=== PATIENT | male | born 1970 | race Caucasian/White ===

== ENCOUNTER 2020-11-27 00:17 | Emergency (ER) | payer MEDICARE, SELFPAY ==
[2020-11-27 01:00] VITALS: BP 162/72; PULSE 86; RESP 18; TEMP 36.9; O2SAT 97; BMI 37.5
--- NOTE | 2020-11-27 01:46 | HMH.EDSKAF ---
ED Disposition Clinical Impression: Cellulitis and abscess of lower extremity Disposition: Home, Self-Care Condition on Discharge: Good Instructions: DI for Cellulitis -- Adult Additional Instructions: keep clean daily and use meds Prescriptions: Sulfamethoxazole/Trimethoprim [Bactrim DS tablet] 1 each PO BID #14 tab Transmission Status: P[facility] to [id number] Cefdinir [Omnicef 300mg Capsule] 300 mg PO BID #20 cap Transmission Status: [facility]ending [id number] Referrals: Luke Ferguson [Primary Care Provider] - - Critical Care Critical Care Time: No Attestation: On 11/27/20, the high probability of a clinically significant, sudden or life threatening deterioration of the following system(s) required my full and direct attention, intervention and personal management. The time I documented below is in addition to time spent performing reported procedures but includes the following listed in this critical care notation. Medical Decision Making - Medical Records Medical records reviewed: Yes: I reviewed the patient's medical records. - Jewel Inquiry Pt receiving controlled substance: No Vital Signs: 11/27/20 01:00 Temperature 98.5 F Temperature Source Oral Pulse Rate [Right] 86 Respiratory Rate 18 Blood Pressure [Right Arm] 162/72 H Blood Pressure Mean [Right Arm] 102 Blood Pressure Source [Right Arm] Automatic Cuff Blood Pressure Position [Right Arm] Sitting 02 Sat by Pulse Oximetry 97 Oxygen Delivery Method Room Air - Lab Data Lab results reviewed: Yes: I reviewed the patient's lab results. Skin/Abscess/FB HPI - General Chief complaint: Skin/Abscess/Foreign Body Stated complaint: Rash on left leg Time Seen by Provider: 11/27/20 01:30 Mode of Arrival: Ambulatory Source of Information: Patient, Medical Record Limitations: No Limitations Description of Symptoms (Recalled from ER Triage Doc. by RN): Pt has chronic redness to left lower ext. has not seen his PCP for this and wants it looked at tonight. - History of Present Illness HPI narrative: ongoing reddness and skin swelling lt lower leg - no other lesions MD complaint: rash Onset (ago): week(s) Tetanus up to date: unsure Location: LLE Severity: moderate Associated symptoms: denies other symptoms Treatments prior to arrival: none - Related Data Previous Rx's Medication Instructions Recorded Benzonatate [Tessalon Perle 100mg 100 mg PO TID #30 cap 07/05/19 Cap] Minocycline HCl [Minocycline HCl 100 mg PO BID #20 tab 07/05/19 100mg Tab*] predniSONE [Prednisone 20mg 20 mg PO BID #10 tab 07/05/19 Tab] Cefdinir [Omnicef 300mg Capsule] 300 mg PO BID #20 cap 11/27/20 Sulfamethoxazole/Trimethoprim 1 each PO BID #14 tab 11/27/20 [Bactrim DS tablet] Allergies Allergy/AdvReac Type Severity Reaction Status Date / Time No Known Allergies Allergy Verified 12/18/18 21:24 [facility] History - Hepatitis A Screen Drug use history?: No High risk sexual behaviors?: No History of sexually transmitted infection?: No Currently employed?: No Childcare worker?: No Do you have indoor plumbing?: Yes Do you have electricity?: Yes Attestation statement:: This patient has been screened for Hepatitis A risk factors. I have reviewed the patient's past medical history: Yes Medical History: Denies:: Diabetes Mellitus Type 1, Diabetes Mellitus Type 2 - Social History Smoking Status: Never smoker Alcohol Intake: never Occupational Status: unemployed ROS Obtained: Yes All systems reviewed & no additional complaints - Constitutional Constitutional: Denies fever(s) - Eyes Eyes: Denies change in vision - ENT Ears, Nose, Mouth, and Throat: Denies sore throat - Cardiovascular Cardiovascular: Denies chest pain - Respiratory Respiratory: Denies shortness of breath - Gastrointestinal Gastrointestingal: Denies: abdominal pain - Genitourinary Male Genitourinary: Denies hematuria - Musculoskeleta
[2020-11-27 02:07] VITALS: BP 154/86; PULSE 82; RESP 16; TEMP 36.9; O2SAT 98
== END 2020-11-27 02:08 | disposition home or self-care (01) ==
PROVIDERS: Emergency Provider Emergency Medicine; PCP Family Medicine
DX: L03.116 Cellulitis of left lower limb (principal)
CPT/HCPCS: 99281

== ENCOUNTER 2021-03-12 14:23 | Emergency (ER) | payer MEDICARE, SELFPAY ==
[2021-03-12 14:35] VITALS: BP 141/91; PULSE 94; RESP 19; TEMP 37; O2SAT 97; BMI 43.9
--- NOTE | 2021-03-12 14:44 | HMH.EDUTC ---
[facility] – [place] Disposition Clinical Impression: Abscess Disposition: Home, Self-Care Condition on Discharge: Good Instructions: Boil, DI for Skin Abscess Additional Instructions: keep area clean and dry do not pick at area if worsen return or be seen in ed take antibiotics as ordered follow up with pcp tomorrow Prescriptions: cephALEXin [Cephalexin 500mg Tab] 500 mg PO BID 10 Days #20 tab Transmission Status: [id number] clindamycin HCL [Clindamycin HCl] 300 mg PO TID 7 Days #21 cap Transmission Status: [id number] Referrals: Provider,Referral, [Primary Care Provider] - Time of Disposition: 14:50 Medical Decision Making - Jewel Inquiry Pt receiving controlled substance: No [facility] [place] HPI - General Chief complaint: [facility]gent [facility] Stated complaint: swollen jaw left side Time Seen by Provider: 03/12/21 14:47 Source of Information: Patient Limitations: No Limitations - History of Present Illness Provider Complaint: 50 yr old male presents for left face swelling. pt states he has a pimple above his lip and the swelling has increased. - Related Data Previous Rx's Medication Instructions Recorded Benzonatate [Tessalon Perle 100mg 100 mg PO TID #30 cap 07/05/19 Cap] Minocycline HCl [Minocycline HCl 100 mg PO BID #20 tab 07/05/19 100mg Tab*] predniSONE [Prednisone 20mg 20 mg PO BID #10 tab 07/05/19 Tab] Cefdinir [Omnicef 300mg Capsule] 300 mg PO BID #20 cap 11/27/20 Sulfamethoxazole/Trimethoprim 1 each PO BID #14 tab 11/27/20 [Bactrim DS tablet] cephALEXin [Cephalexin 500mg Tab] 500 mg PO BID 10 Days #20 tab 03/12/21 clindamycin HCL [Clindamycin HCl] 300 mg PO TID 7 Days #21 cap 03/12/21 Allergies Allergy/AdvReac Type Severity Reaction Status Date / Time No Known Allergies Allergy Verified 12/18/18 21:24 [facility] History - Hepatitis A Screen Attestation statement:: This patient has been screened for Hepatitis A risk factors. I have reviewed the patient's past medical history: Yes Medical History: Denies:: Diabetes Mellitus Type 1, Diabetes Mellitus Type 2 - Social History Smoking Status: Never smoker Alcohol Intake: never Occupational Status: unemployed ROS Obtained: Yes Systems reviewed as appropriate & no additional complaints - Constitutional Constitutional: Reports system reviewed and no additional complaints, except as docu, Denies body ache, Denies fever(s) - Eyes Eyes: Reports system reviewed and no additional complaints, except as docu, Denies blurry vision - ENT Ears, Nose, Mouth, and Throat: Reports system reviewed and no additional complaints, except as docu, Reports as per HPI, Denies sore throat - Cardiovascular Cardiovascular: Reports system reviewed and no additional complaints, except as docu, Denies chest pain - Respiratory Respiratory: Reports system reviewed and no additional complaints, except as docu, Denies change in phlegm color - Gastrointestinal Gastrointestingal: Reports: system reviewed and no additional complaints, except as docu. Denies: nausea, vomiting - Genitourinary Male Genitourinary: Reports system reviewed and no additional complaints, except as docu, Denies urinary frequency - Musculoskeletal Musculoskeletal: Reports system reviewed and no additional complaints, except as docu, Denies joint pain - Integumentary/Breasts Skin/Breast: Reports system reviewed and no additional complaints, except as docu, Reports as per HPI, Reports boil - Neurologic Neurologic: Reports system reviewed and no additional complaints, except as docu, Denies dizziness - Endocrine Endocrine: Reports system reviewed and no additional complaints, except as docu, Denies fatigue - Hematologic/Lymphatic Henatologic/Lymphatic: Reports system reviewed and no additional complaints, except as docu, Denies lymphadenopathy - Allergic/Immunologic Allergic/Immunologic: Reports system reviewed and no additional complaints
[2021-03-12 14:52] VITALS: BP 141/91; PULSE 94; RESP 19; TEMP 37; O2SAT 97
== END 2021-03-12 14:55 | disposition home or self-care (01) ==
PROVIDERS: Emergency Provider Nurse Practitioner Family
DX: L02.01 Cutaneous abscess of face (principal)
CPT/HCPCS: G0463; 99202

== ENCOUNTER 2021-09-05 18:32 | Emergency (ER) | payer MEDICARE, SELFPAY ==
[2021-09-05 19:55] VITALS: BP 168/94; PULSE 91; RESP 19; TEMP 37.7; O2SAT 96; BMI 40.6
[2021-09-05 20:10] LABS: Apearance,Urine Clear (Clear); Color,Urine Yellow (Yellow); Specific Gravity, Urine >= 1.030 (1.005-1.030)
[2021-09-05 20:11] LABS: Glucose,Urine (UA) >=1000 (Negative); Ketones,Urine 15 (Negative); Protein,Urine 3+ (Negative)
[2021-09-05 20:12] LABS: Bilirubin,Urine Negative (Negative); Blood, Urine 3+ (Negative); UTC Leukocyte Esterase,Urine Negative (Negative); UTC Nitrate,Urine Negative (Negative); Urobilinogen,Urine 0.2 EU/dl (0.2)
[2021-09-05 20:20] LABS: POC Glucose,Bedside 288 (70-110)
--- NOTE | 2021-09-05 20:20 | HMH.EDUTC ---
[facility] [place] Condition on Discharge: Good Time of Disposition: 20:29 <Yael Bishop - Last Filed: 09/05/21 20:20> Condition on Discharge: Fair <Bishnu Merchant - Last Filed: 09/05/21 22:59> Clinical Impression: Elevated glucose level, Mesenteric adenitis Disposition: Home, Self-Care Instructions: DI for Acute Abdominal Pain, Type 2 Diabetes Additional Instructions: Please avoid sugars and other carbohydrates such as bread, pasta, rice, potatoes. Follow-up with your primary care physician in the next 2 days to discuss the possibility of you having new onset of diabetes. Your sugar today was elevated. May take [id number] ibuprofen and Tylenol for your discomfort. I strongly recommend that you stick to a clear liquid diet for the next day or 2. You may then advance your diet slowly. Important that you go see your doctor even if you feel well. Work-up in the emergency department today is consistent with a condition called mesenteric adenitis. This is usually not a serious disease and will resolve on its own. Please return to the emergency department if you feel worse in any way. Prescriptions: Ciprofloxacin HCl [Cipro 500mg Tab] 500 mg PO BID #20 tab Transmission Status: Pending to [facility]/pharmacy #[id number] metroNIDAZOLE [metroNIDAZOLE 500mg Tablet] 500 mg PO BID #20 tab Transmission Status: Pending to [facility]/pharmacy #[id number] Ondansetron [Ondansetron Odt 8mg Tab] 8 mg PO QID 4 Days #16 tab Transmission Status: Pending to [facility]/pharmacy #[id number] Referrals: Luke Ferguson [Primary Care Provider] - Medical Decision Making - Jewel Inquiry Pt receiving controlled substance: No Jewel was queried for this patient: No - Lab Data Lab results reviewed: Yes: I reviewed the patient's lab results. <Yael Bishop - Last Filed: 09/05/21 20:20> - Medical Records Medical records reviewed: Yes: I reviewed the patient's medical records. - Jewel Inquiry Pt receiving controlled substance: No - Lab Data Lab results reviewed: Yes: I reviewed the patient's lab results. Result diagrams: 09/05/21 20:30 09/05/21 20:30 <Bishnu Merchant - Last Filed: 09/05/21 22:59> Vital Signs: 09/05/21 19:55 09/05/21 20:32 09/05/21 21:46 Temperature 99.8 F H 98.9 F 99.6 F Temperature Source Oral Oral Pulse Rate [Right Brachial] 91 H 97 H Respiratory Rate 19 20 Blood Pressure [Right Arm] 168/94 H 171/92 H Blood Pressure Mean [Right Arm] 118 118 Blood Pressure Source [Right Arm] Automatic Cuff Blood Pressure Position [Right Arm] Sitting 02 Sat by Pulse Oximetry 96 97 Oxygen Delivery Method Room Air - Lab Data Lab Results 09/05/21 19:53: Urine Color Yellow, Urine Appearance Clear, Urine pH 6.0, Ur Specific [place] >= 1.030, Urine Protein 3+, Urine Glucose (UA) >=1000, Urine Ketones 15, Urine Blood 3+, Urine Nitrate Negative, Urine Bilirubin Negative, Urine Urobilinogen 0.2, Ur Leukocyte Esterase Negative 09/05/21 20:00: Urine Color Yellow, Urine Appearance Cloudy, Urine pH 6.0, Ur Specific [place] >= 1.030, Urine Protein 1+, Urine Glucose (UA) 3+, Urine Ketones 1+, Urine Blood 3+, Urine Nitrate Negative, Urine Bilirubin Negative, Urine Urobilinogen 0.2, Ur Leukocyte Esterase Negative, Urine RBC 5-10, Urine WBC 10-20, Ur Squamous Epith Cells None, Urine Bacteria None 09/05/21 20:12: POC Glucose 288 H 09/05/21 20:30: WBC 21.2 H*, RBC 5.57, Hgb 16.5, Hct 51.0, MCV 91.6, MCH 29.7, MCHC 32.4, RDW 12.7, Plt Count 214, MPV 7.8, Neut % (Auto) 85.7 H, Lymph % (Auto) 6.1 L, [place] % (Auto) 5.7, Eos % (Auto) 2.1, Baso % (Auto) 0.3, Neut # (Auto) 18.2 H, Lymph # (Auto) 1.3, [place] # (Auto) 1.2 H, Eos # (Auto) 0.4, Baso # (Auto) 0.1, Total Counted 100, Neutrophils % (Manual) 87 H, Lymphocytes % (Manual) 8 L, Monocytes % (Manual) 5, Platelet Estimate Normal 09/05/21 20:30: Sodium 135 L, Potassium 4.2, Chloride 96 L, Carbon Dioxide 30, Anion Gap 13.2, BUN 14, Creatinine 0.80, Estimated Creat Clear 97, Estimated GFR 102, Est GFR ( Amer
[2021-09-05 20:32] VITALS: BP 171/92; PULSE 97; RESP 20; TEMP 37.2; O2SAT 97; BMI 41.9
[2021-09-05 20:48] LABS: Microscopic, Urine URINE MICROSCOPIC (MICROSCOPIC)
[2021-09-05 20:51] LABS: Basophils # 0.1 K/mm3 (0-0.2); Basophils % 0.3 % (0.1-2.0); Eosinophils # 0.4 K/mm3 (0.0-0.4); Eosinophils % 2.1 % (0.1-12.0); Hemoglobin 16.5 g/dL (14.1-18.0); Lymphocytes # 1.3 K/mm3 (0.7-4.5); Lymphocytes % 6.1 % (10-50); Mean Corpuscular HGB Conc 32.4 g/dL (31.8-35.4); Mean Corpuscular Hemoglobin 29.7 pg (27.0-31.2); Mean Corpuscular Volume 91.6 fl (80-94); Mean Platelet Volume 7.8 fl (7.4-10.4); Monocytes # 1.2 K/mm3 (0.1-1.0); Monocytes % 5.7 % (1.7-9.3); Neutrophils # 18.2 K/mm3 (1.8-7.8); Neutrophils % 85.7 % (37.0-80.0); Platelet Count 214 K/mm3 (142-424); Red Blood Count 5.57 M/mm3 (4.60-6.20); Red Cell Distribution Width 12.7 % (11.5-17.5); White Blood Count 21.2 K/mm3 (4.8-10.8)
[2021-09-05 20:58] LABS: MANUAL DIFFERENTIAL MANUAL DIFFERENTIAL (MANUAL DIFF)
[2021-09-05 21:06] LABS: Acetone, Serum (Rapid) None Detected (None Detect)
[2021-09-05 21:08] LABS: Chloride 96 mmol/L (98-107); Potassium 4.2 mmoL/L (3.5-5.1); Sodium 135 mmol/L (136-145)
[2021-09-05 21:09] LABS: Appearance,Urine CLOUDY (Clear); Bilirubin,Urine Negative (Negative); Blood, Urine 3+ (Negative); Color,Urine YELLOW (Yellow); Glucose,Urine (UA) 3+ (Negative); Ketones,Urine 1+ (Negative); Leukocyte Esterase,Urine Negative (Negative); Nitrate,Urine Negative (Negative); Protein,Urine 1+ (Negative); Specific Gravity, Urine >= 1.030 (1.005-1.030); Urobilinogen,Urine 0.2 EU/dl (0.2)
[2021-09-05 21:10] LABS: Lipase 103 U/L (23-300)
[2021-09-05 21:11] LABS: Alanine Aminotransferase 69 U/L (12-78); Albumin Level 3.9 g/dl (3.5-5.0); Albumin/Globulin Ratio 1.1 (1.1-1.8); Alkaline Phosphatase 100 U/L (38-126); Anion Gap 13.2 mEq/L (5-15); Aspartate Amino Transferase 50 U/L (17-59); Bilirubin,Total 0.8 mg/dl (0.2-1.3); Blood Urea Nitrogen 14 mg/dl (9-20); Calcium 9.2 mg/dl (8.4-10.2); Carbon Dioxide 30 mmol/L (22.0-30.0); Creatinine Clearance Estimated 97 mL/min (50-200); Estimated Glomerular Filt Rate 102 ml/min (>60); GFR (African American) 123 ML/MIN (>60); Globulin 3.6 g/dL (1.3-3.2); Glucose 329 mg/dl (74-100); Total Protein,Serum 7.5 g/dl (6.3-8.2)
[2021-09-05 21:18] LABS: Lymphocytes % 8 % (10-50); Monocytes % 5 % (2-9); Neutrophils % 87 % (42-76); Platelet Estimate Normal; Total Cells Counted 100
--- NOTE | 2021-09-05 21:38 | CT_ITS ---
PROCEDURE INFORMATION: Exam: CT Abdomen And Pelvis With Contrast Exam date and time: 09/05/2021 9:38 PM Age: 51 years old Clinical indication: Nausea and vomiting; Patient HX: N/v for 1 day; Additional info: Abd pain and vomiting TECHNIQUE: Imaging protocol: Computed tomography of the abdomen and pelvis with contrast. Total images: 358 Radiation optimization: All CT scans at this facility use at least one of these dose optimization techniques: automated exposure control; mA and/or kV adjustment per patient size (includes targeted exams where dose is matched to clinical indication); or iterative reconstruction. Contrast material: ISOVUE; Contrast volume: 75 ml; Contrast route: IV; COMPARISON: CR XR CHEST 2V 07/05/2019 9:36 PM FINDINGS: Lungs: 5 mm juxtapleural noncalcified pulmonary nodule in the posterolateral right lower lobe on series 3, image 8. 4 mm juxtapleural nodule in the posterolateral left lower lobe on image 22. 3 mm nodule in the lateral lingula on image 2. For patients at low risk (minimal or absent history of smoking and of other known risk factors), no routine follow-up is indicated. For patients at high risk (history of smoking or of other known risk factors), consider optional CT at 12 months. (Maxim et al., Fleischner Society, 2017). Granulomatous calcifications in the left hilar region. Heart: Heart size normal. Mediastinal space: Mildly enlarged right subcarinal nodes measuring up to 12 mm, nonspecific. The visualized distal esophagus is largely contracted without gross abnormality. Liver: Moderate fatty infiltration of the liver. Mild fatty sparing around the gallbladder fossa . Normal contour. No mass lesions. No intrahepatic biliary ductal dilatation. Gallbladder and bile ducts: Normal. No calcified stones. No ductal dilation. Pancreas: Normal. No inflammatory changes or ductal dilation. Spleen: Normal. No splenomegaly. Adrenal glands: Left adrenal nodule composed of mature fat measuring 15 mm, consistent with benign myelolipoma. This does not require further evaluation. The right adrenal gland is normal. Kidneys and ureters: No acute abnormalities. No hydronephrosis or hydroureter. No urinary tract stones are identified. Stomach and bowel: The stomach is largely contracted without gross abnormality. The small bowel is nondilated with no gross abnormality. No acute colonic abnormalities. Appendix: The appendix is normal in caliber and demonstrates no evidence of appendicitis. Intraperitoneal space: No free fluid or air. Vasculature: No acute process. No abdominal aortic aneurysm. Lymph nodes: There is central mesenteric stranding/haziness with a few mildly enlarged nonspecific mesenteric lymph nodes present. This can be seen in mesenteric adenitis, sclerosing mesenteritis, mesenteric edema, or less likely lymphoma. Clinical correlation is recommended. Urinary bladder: Questionable mild urinary bladder wall thickening and minimal adjacent stranding. Correlate with UA for evidence of cystitis. Reproductive: Unremarkable as visualized. Bones/joints: No acute osseous abnormalities. Soft tissues: There is a very small fatty umbilical hernia present which demonstrates some faint stranding/infiltration, correlate clinically for evidence of strangulated fatty hernia. No evidence of bowel herniation. IMPRESSION: 1. Central mesenteric stranding with a few mildly enlarged central mesenteric nodes, most commonly seen with mesenteric adenitis, although please see differential considerations above. 2. There is a very small fatty umbilical hernia present which demonstrates mild stranding/infiltration, correlate
[2021-09-05 21:46] VITALS: TEMP 37.6
[2021-09-05 22:40] LABS: Lactic Acid 1.6 mmol/L (0.7-2.1)
[2021-09-05 23:01] VITALS: BP 168/80; PULSE 85; RESP 20; TEMP 37; O2SAT 99
== END 2021-09-05 23:06 | disposition home or self-care (01) ==
LOC: UTC 20:28 → ER 20:30
PROVIDERS: Nurse Practitioner; Emergency Provider Emergency Medicine; PCP Family Medicine
DX: I88.0 Nonspecific mesenteric lymphadenitis (principal); R73.09 Other abnormal glucose; R11.10 Vomiting, unspecified; R10.10 Upper abdominal pain, unspecified
CPT/HCPCS: 74177; 80053; 81001; 81003; 82009; 82962; 83605; 83690; 85007; 85025; 87040; 87086; 87088; 87186; 96365; 96366; 96375; 99283; J2405; Q9967

== ENCOUNTER 2022-07-23 20:40 | Emergency (ER) | payer MEDICARE, MEDICAID, SELFPAY ==
[2022-07-23 20:41] VITALS: BP 170/87; PULSE 76; RESP 16; TEMP 36.9; O2SAT 98; BMI 41.9
[2022-07-23 23:28] VITALS: BMI 41.9
--- NOTE | 2022-07-23 23:33 | HMH.EDWNDL ---
Discharge Plan Disposition Patient Disposition: Home, Self-Care Prescriptions Prescriptions: New sulfamethoxazole-trimethoprim [Bactrim DS] 800-160 mg Tablet 1 tab PO Q12H Qty: 14 0RF clindamycin HCl 300 mg capsule 300 mg PO TID Qty: 30 0RF Referrals Follow up/Referrals: Luke Ferguson [Primary Care Provider] - See instructions Clinical Impressions Clinical Impression: Cellulitis Instructions Patient Instructions: Cellulitis Discharge ED Provider: Arnie Lopez Wound/Laceration HPI General Chief Complaint: Wound/Laceration Stated Complaint: spot on left arm infected possible insect bite Time Seen by Provider: 07/23/22 23:33 Mode of Arrival: Ambulatory Source of Information: Patient and Medical Record Limitations: No Limitations Description of Symptoms (Recalled from ER Triage Doc. by RN): pt states that 3 days ago he woke up with a red fabby on left forearm that looks like a pimple. Since then it has gotten more red and swollen with drainage. History of Present Illness HPI narrative: infection lt forearm over the last 3 days - has been draining Onset (ago): day(s) Extremity Location: Left: forearm Place: home Related Data Previous Rx's Medication Instructions Recorded clindamycin HCl 300 mg capsule 300 mg PO TID #30 caps 07/23/22 sulfamethoxazole 800 1 tab PO Q12H #14 tabs 07/23/22 mg-trimethoprim 160 mg tablet (Bactrim DS) Allergies Allergy/AdvReac Type Severity Reaction Status Date / Time No Known Allergies Allergy Verified 12/18/18 21:24 PFSH PFSH Medical History (Updated 07/23/22 @ 23:37 by Arnie Lopez MD) Asthma Hypertension Social History (Updated 07/23/22 @ 23:33 by Sandie Frederick RN) Smoking Status: Former smoker alcohol intake: never substance use type: marijuana counseling given: No (patient refused) current occupational status: other Travel in the last 8 weeks: None ROS Obtained: Yes All systems reviewed & no additional complaints except as documented Physical Exam General General appearance: alert Head Head exam: normocephalic Eye Eye exam: Present PERRL and EOMI ENT ENT exam: Present mucous membranes moist Neck Neck exam: Present trachea midline Respiratory Respiratory exam: Present normal lung sounds bilaterally Cardiovascular Cardiovascular exam: Present regular rate Abdominal Exam Abdominal exam: Present soft Extremities Exam Extremities exam: Present full ROM Neurological Exam Neurological exam: Present alert, oriented X3 and CN II-XII intact Psychiatric Psychiatric exam: Present normal affect Skin Skin exam: Present erythema and other (2x2 cm cellulitis lt forearm ) Medical Decision Making Medical Records Medical records reviewed: Yes I reviewed the patient's medical records. Jewel Inquiry Pt receiving controlled substance: No Vital Signs: 07/23/22 20:41 Temperature 98.4 F Temperature Source Oral Pulse Rate [Apical] 76 Respiratory Rate 16 Blood Pressure [Right Arm] 170/87 H Blood Pressure Mean [Right Arm] 114 Blood Pressure Source [Right Arm] Automatic Cuff Blood Pressure Position [Right Arm] Sitting 02 Sat by Pulse Oximetry 98 Oxygen Delivery Method Room Air Lab Data Lab results reviewed: Yes I reviewed the patient's lab results. Orders (Tests/Meds): ED MEDICATIONS Discontinued Medications Generic Name Dose Route Start Last Admin Trade Name Freq PRN Reason Stop Dose Admin Acetaminophen/Codeine Phosphate 1 packet 07/23/22 23:29 Acetaminophen 300mg W/Codeine 30mg Take Home Pack (6) PO 07/23/22 23:30 ONCE ONE Clindamycin HCl 300 mg 07/23/22 23:29 Clindamycin 150mg Capsule PO 07/23/22 23:30 ONCE ONE Trimethoprim/Sulfamethoxazole 2 each 07/23/22 23:29 Sulfa/Trimethoprim 1 Tablet PO 07/23/22 23:30 ONCE ONE ORDERS Category Date Time Status Wound Culture and Gram Stain Stat Micro 07/23/22 23:29 Ordered Medical Decision Narrative: has ce
[2022-07-23 23:46] VITALS: BP 170/68; PULSE 68; RESP 16; TEMP 36.6; O2SAT 98
== END 2022-07-23 23:54 | disposition home or self-care (01) ==
PROVIDERS: Emergency Provider Emergency Medicine; PCP Family Medicine
DX: L03.114 Cellulitis of left upper limb (principal); A49.02 Methicillin resistant Staphylococcus aureus infection, unspecified site; Z87.891 Personal history of nicotine dependence; F12.90 Cannabis use, unspecified, uncomplicated
CPT/HCPCS: 87070; 87077; 87186; 87205; 99283

== ENCOUNTER 2023-09-07 21:12 | Emergency (ER) | payer MEDICARE, MEDICAID, SELFPAY ==
[2023-09-07] VITALS (8 sets, daily range): BP systolic 130–172; BP diastolic 57–84; PULSE 76–87; RESP 14–19; TEMP 36.4; O2SAT 95–97; BMI 41.1
--- NOTE | 2023-09-07 21:27 | XR_ITS ---
PROCEDURE INFORMATION: Exam: XR Chest Exam date and time: 09/07/2023 9:25 PM Age: 53 years old Clinical indication: Pain; Chest pressure; Additional info: Cp TECHNIQUE: Imaging protocol: Radiologic exam of the chest. Views: 2 views. COMPARISON: CR XR CHEST 2V 07/05/2019 9:36 PM FINDINGS: Lungs: Unremarkable. No consolidation. Pleural spaces: Unremarkable. No pleural effusion. No pneumothorax. Heart/Mediastinum: Unremarkable. No cardiomegaly. Bones/joints: Unremarkable. IMPRESSION: No acute findings.
--- NOTE | 2023-09-07 21:27 | ECG_ITS ---
APPROVED REPORT Exam: Resting ECG HR:81 bpm ECG Measurements Heart Rate 81 AXES RI 162 P 56 QRSd 100 QRS -16 QT 366 T 42 QTc 403 Conclusion SINUS RHYTHM INCOMPLETE RIGHT BUNDLE BRANCH BLOCK [90+ ms QRS DURATION, TERMINAL R IN V1/V2, 40+ ms S IN I/aVL/V4/V5/V6] POSSIBLE ANTERIOR MYOCARDIAL INFARCTION , OF INDETERMINATE AGE [30 ms Q WAVE IN V3/V4, OR R < 0.2 mV IN V4] ABNORMAL ECG UNCONFIRMED REPORT Electronically signed by : Connor Constantino MD 09/08/2023 17:49:39
--- NOTE | 2023-09-07 21:30 | HMH.EDGENADL ---
Discharge Plan Disposition Patient Disposition: Home, Self-Care Condition: Good Prescriptions Prescriptions: New methocarbamol 500 mg tablet 500 mg PO Q6H PRN (Reason: pain) 5 Days Qty: 20 0RF Referrals Follow up/Referrals: Erasmo Cordova MD [Staff Physician] - See instructions Luke Ferguson [Primary Care Provider] - See instructions Activity Restrictions/Add. Instructions Additional Instructions/Restrictions: You have been evaluated in the ED for your complaints. You may follow-up with your PCP in the next 3 to 5 days. Please return to ED for any new or worsening symptoms. Please follow up with Cardiology as discussed Clinical Impressions Clinical Impression: Acute pain of left shoulder Instructions Patient Instructions: DI for Musculoskeletal Pain Discharge ED Provider: Jaxon Persaud General Adult HPI <Miguel Casillas MD - Last Filed: 09/07/23 23:17> General Chief complaint: Chest Pain Stated complaint: LT shoulder Time Seen by Provider: 09/07/23 21:24 Mode of Arrival: Family Vehicle Source of Information: Patient Limitations: No Limitations Description of Symptoms (Recalled from ER Triage Doc. by RN): 53 yo male presents with chest pain that began yesterday as shoulder pain and now radiates down through his chest. Pt reports pain 10/10 and increases with coughing/clearing his throat. States he noticed throughout day today it takes my breath . Denies previous cardiac events/pulmonary issues. Former smoker. PMH: HTN, but doesn't take the meds I'm supposed to because I haven't been to the doctor to get them. Denies nausea,denies recent diaphoresis or fever. Denies h/o diabetes, kidney issues. Asthma dx current. No meds. Denies allergies to meds/foods. History of Present Illness HPI narrative: The patient presents with a chief complaint of sharp, almost constant shoulder pain that started yesterday. The pain is located in the shoulder itself, extending down to the back, and slightly radiating down the arm. He denies any prior history of similar pain. The pain is exacerbated by driving over bumps and coughing. He has tried ibuprofen, Advil, and Icy Hot without relief. He reports feeling slightly short of breath but denies any chest pain. He has a medical history of asthma and high blood pressure, with no known heart or lung issues other than asthma. He uses inhalers for asthma management but feels they are not currently effective. He is right-handed and denies any recent shoulder injury or trauma. Related Data Previous Rx's Medication Instructions Recorded methocarbamol 500 mg tablet 500 mg PO Q6H PRN pain 5 days #20 09/08/23 tabs Allergies Allergy/AdvReac Type Severity Reaction Status Date / Time No Known Allergies Allergy Verified 12/18/18 21:24 [facility] <Miguel Casillas MD - Last Filed: 09/07/23 23:17> [facility] Disclaimer: The information contained in this section may have been updated after the patient was seen, as this information can be updated by other users. Medical History (Updated 09/08/23 @ 01:12 by Jaxon Persaud DO) Asthma Hypertension Social History (Updated 07/23/22 @ 23:33 by Sandie Frederick RN) Smoking Status: Former smoker alcohol intake: never substance use type: marijuana counseling given: No (patient refused) current occupational status: other Travel in the last 8 weeks: None <Miguel Casillas MD - Last Filed: 09/07/23 23:17> ROS Obtained: Yes Systems reviewed as appropriate & no additional complaints except as documented As per HPI Physical Exam <Miguel Casillas MD - Last Filed: 09/07/23 23:17> General General appearance: alert and in no apparent distress Head Head exam: atraumatic and normocephalic Eye Eye exam: Present normal appearance Neck Neck exam: Present normal inspection Chest Chest inspection: Present normal inspection and symmetric chest wall rise Respiratory Respiratory exam: Present normal lung sounds bilaterally and wheezes; Absent respirat
[2023-09-07 21:42] LABS: Chloride 101 mmol/L (98-107)
[2023-09-07 21:43] LABS: Basophils % 0.3 % (0.1-2.0); Eosinophils # 0.7 K/mm3 (0.0-0.4); Eosinophils % 5.6 % (0.1-12.0); Hematocrit 47.5 % (42.0-52.0); Hemoglobin 15.9 g/dL (14.1-18.0); Lymphocytes % 15.3 % (10-50); Mean Corpuscular HGB Conc 33.5 g/dL (31.8-35.4); Mean Corpuscular Volume 89.6 fl (80-94); Mean Platelet Volume 7.5 fl (7.4-10.4); Monocytes # 0.7 K/mm3 (0.1-1.0); Monocytes % 5.6 % (1.7-9.3); Neutrophils # 9.7 K/mm3 (1.8-7.8); Neutrophils % 73.3 % (37.0-80.0); Platelet Count 231 K/mm3 (142-424); Red Cell Distribution Width 13.2 % (11.5-17.5); Sodium 137 mmol/L (136-145); White Blood Count 13.2 K/mm3 (4.8-10.8)
[2023-09-07 21:45] LABS: Blood Urea Nitrogen 21 mg/dl (9-20); Creatinine Clearance Estimated 130 mL/min (50-200); Estimated Glomerular Filt Rate 78 ml/min (>60); GFR (African American) 94 ML/MIN (>60)
[2023-09-07 21:46] LABS: Alanine Aminotransferase 31 U/L (12-78); Albumin Level 4.1 g/dl (3.5-5.0); Albumin/Globulin Ratio 1.1 (1.1-1.8); Alkaline Phosphatase 80 U/L (38-126); Aspartate Amino Transferase 38 U/L (17-59); Bilirubin,Total 0.4 mg/dl (0.2-1.3); Calcium 8.9 mg/dl (8.4-10.2); Carbon Dioxide 29 mmol/L (22.0-30.0); Globulin 3.6 g/dL (1.3-3.2); Glucose 165 mg/dl (74-100); Total Protein,Serum 7.7 g/dl (6.3-8.2)
--- NOTE | 2023-09-07 21:48 | XR_ITS ---
PROCEDURE INFORMATION: Exam: XR Left Shoulder Exam date and time: 09/07/2023 10:13 PM Age: 53 years old Clinical indication: Pain; Shoulder; Left; Additional info: Shoulder pain TECHNIQUE: Imaging protocol: Radiologic exam of the left shoulder. Views: 2 or more views. COMPARISON: CR XR CHEST 2V 09/07/2023 9:25 PM FINDINGS: Bones/joints: Normal. Soft tissues: Normal. IMPRESSION: No acute findings.
[2023-09-07 22:04] LABS: Troponin I < 0.01 ng/ml (0.00-0.034)
[2023-09-08 00:30] VITALS: BP 138/62; PULSE 75; RESP 14; O2SAT 97
[2023-09-08 00:59] LABS: Troponin I < 0.01 ng/ml (0.00-0.034)
[2023-09-08 01:11] VITALS: BP 164/83; PULSE 76; RESP 14; TEMP 36.7; O2SAT 96
== END 2023-09-08 01:16 | disposition home or self-care (01) ==
PROVIDERS: Emergency Medicine; Emergency Provider Emergency Medicine; PCP Family Medicine
DX: M25.512 Pain in left shoulder (principal); R06.02 Shortness of breath; J45.909 Unspecified asthma, uncomplicated; I10 Essential (primary) hypertension; Z87.891 Personal history of nicotine dependence; R07.9 Chest pain, unspecified
CPT/HCPCS: 36415; 71046; 73030; 80053; 84484; 85025; 93005; 96374; 99284

== ENCOUNTER 2023-12-06 16:25 | Emergency (ER) | payer OTHER, SELFPAY ==
[2023-12-06 16:31] VITALS: BP 180/93; PULSE 85; RESP 18; TEMP 36.6; O2SAT 96; BMI 41.1
--- NOTE | 2023-12-06 17:21 | CT_ITS ---
PROCEDURE INFORMATION: Exam: CT Cervical Spine Without Contrast Exam date and time: 12/06/2023 5:25 PM Age: 53 years old Clinical indication: Neck pain TECHNIQUE: Imaging protocol: Computed tomography of the cervical spine without contrast. Radiation optimization: All CT scans at this facility use at least one of these dose optimization techniques: automated exposure control; mA and/or kV adjustment per patient size (includes targeted exams where dose is matched to clinical indication); or iterative reconstruction. COMPARISON: CR XR SHOULDER LT MIN 2V 09/07/2023 10:13 PM FINDINGS: Bones/joints: No acute fracture. Reversal of normal cervical lordosis centered at C5-C6. Maintained craniocervical junction. Mild multilevel degenerative changes. No severe neural foraminal narrowing or spinal canal stenosis. Lungs: Lung apices are normal. Soft tissues: Unremarkable. IMPRESSION: No acute osseous findings.
[2023-12-06] MEDS: METHOCARBAMOL 500MG TABLET 1500 MG PO (17:27)
[2023-12-06] MEDS: ACETAMINOPHEN 500MG TAB 1000 MG PO (17:27)
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
[2023-12-06 18:26] VITALS: BP 166/89; PULSE 78; RESP 19; TEMP 36.7
== END 2023-12-06 18:27 | disposition home or self-care (01) ==
PROVIDERS: Emergency Provider Emergency Medicine
DX: M54.2 Cervicalgia (principal); M54.6 Pain in thoracic spine; M25.519 Pain in unspecified shoulder; I10 Essential (primary) hypertension; J45.909 Unspecified asthma, uncomplicated
CPT/HCPCS: 72125; 99284

== ENCOUNTER 2024-10-02 14:45 | Emergency (ER) | payer MEDICARE, SELFPAY ==
[2024-10-02 14:47] VITALS: BP 166/83; PULSE 85; RESP 20; TEMP 36.9; O2SAT 98; BMI 37.5
[2024-10-02 15:00] VITALS: BP 172/93; PULSE 87; RESP 18; O2SAT 95
--- NOTE | 2024-10-02 15:10 | XR_ITS ---
PROCEDURE INFORMATION: Exam: XR Left Shoulder Exam date and time: 10/02/2024 3:10 PM Age: 54 years old Clinical indication: Pain; Shoulder; Left; Additional info: Pain rom TECHNIQUE: Imaging protocol: Radiologic exam of the left shoulder. Views: 2 or more views. COMPARISON: CR XR SHOULDER LT MIN 2V 09/07/2023 10:13 PM FINDINGS: Bones/joints: Degenerative changes in the acromioclavicular joint and glenohumeral joint. There is no evidence of acute fracture.There is no evidence of malalignment or dislocation. Soft tissues: Normal. IMPRESSION: There is no evidence of acute fracture.There is no evidence of malalignment or dislocation.
--- NOTE | 2024-10-02 15:10 | XR_ITS ---
PROCEDURE INFORMATION: Exam: XR Right Hip Exam date and time: 10/02/2024 3:13 PM Age: 54 years old Clinical indication: Pelvic pain; Additional info: Pain rom TECHNIQUE: Imaging protocol: Radiologic exam of the right hip. Views: 2 or 3 views hip with pelvis when performed. COMPARISON: CT ABDOMEN PELVIS W CON 09/05/2021 9:49 PM FINDINGS: Bones/joints: Degenerative changes in both hips and sacroiliac joints. There is no evidence of acute fracture.There is no evidence of malalignment or dislocation. Soft tissues: Unremarkable. IMPRESSION: There is no evidence of acute fracture.There is no evidence of malalignment or dislocation.
--- NOTE | 2024-10-02 15:11 | HMH.EDGENADL ---
Discharge Plan Disposition Patient Disposition: Home, Self-Care Prescriptions Prescriptions: New methocarbamol 500 mg tablet 1,000 mg PO Q8H PRN (Reason: muscle pain and spasm) Qty: 30 0RF No Action methocarbamol 750 mg tablet 1,500 mg PO TID 5 Days Qty: 30 0RF Referrals Follow up/Referrals: Provider,Referral, [Primary Care Provider] - See instructions Activity Restrictions/Add. Instructions Additional Instructions/Restrictions: Please wear your sling for comfort and call and schedule appoint with Dr. Flores as soon as you are able. You were right today you did break your elbow when you were little and it has not healed correctly. For pain for your shoulder and hip please take Tylenol and ibuprofen every 6 hours it is okay to take them at the same time. If new or worsening symptoms please not hesitate to return the emergency department. Please take your medications as prescribed. Clinical Impressions Clinical Impression: Left shoulder pain, Hip pain, Closed fracture of elbow with nonunion Print Language Print Language: Polish Discharge ED Provider: Kena Villalobos General Adult HPI General Chief complaint: Extremity Problem,Nontraumatic Stated complaint: left arm pain Time Seen by Provider: 10/02/24 15:00 Mode of Arrival: Ambulatory Source of Information: Patient Limitations: No Limitations Description of Symptoms (Recalled from ER Triage Doc. by RN): arm and gregory leg pain for over 1 week. History of Present Illness HPI narrative: Patient is a 54-year-old male with past medical history of left-sided shoulder pain and right-sided hip pain that is chronic that is worse than normal who presents emergency department for pain of these areas. He denies trauma. Since his childhood he has had problems with his left elbow when he fell on it and did not seek care. However he has been carrying reef shingles previously that are heavy on his affected shoulder and since then has had painful range of motion that occurs for multiple days monthly. He has not seen any specialist for this. With the specter of his right hip pain it is also chronic and he has pain however does not affect his range of motion or gait. No new trauma. Patient does sleep on his sides. No other acute complaints at this time. Related Data Previous Rx's ?Medication ?Instructions ?Recorded methocarbamol 750 mg tablet 1,500 mg (2 x 750 mg) PO TID 5 12/06/23 days #30 tabs methocarbamol 500 mg tablet 1,000 mg (2 x 500 mg) PO Q8H PRN 10/02/24 muscle pain and spasm #30 tabs Allergies Allergy/AdvReac Type Severity Reaction Status Date / Time No Known Allergies Allergy Verified 12/18/18 21:24 [facility] Disclaimer: The information contained in this section may have been updated after the patient was seen, as this information can be updated by other users. Medical History (Updated 10/02/24 @ 15:59 by Donaldo Parks MD) Hypertension Asthma Social History (Updated 07/23/22 @ 23:33 by Sandie Frederick RN) Smoking Status: Never smoker alcohol intake: never substance use type: marijuana counseling given: No (patient refused) current occupational status: other Other Medical History Have you received the Flu Vaccine for this season: No Have you received the Pneumonia Vaccine: No ROS Obtained: Yes Systems reviewed as appropriate & no additional complaints except as documented Physical Exam General General appearance: alert and in no apparent distress Head Head exam: atraumatic and normocephalic Eye Eye exam: Present PERRL ENT ENT exam: Present mucous membranes moist Neck Neck exam: Present normal inspection Chest Chest inspection: Present normal inspection and symmetric chest wall rise Respiratory Respiratory exam: Present normal lung sounds bilaterally; Absent respiratory distress Cardiovascular Cardiovascular exam: Present regular rate and normal rhythm Abdominal Exam Abdominal exam: Present soft; Absent tenderness Extremities Exam Extremities exam: Present normal inspection, tenderness (Mild, left shoulder, no tenderness over the right hip.) and other (Painful abduction of the left shoulder with 4 out of 5 strength, 5 out of 5 strength bilateral upper and lower extremities otherwise, no overlying skin changes. Bounding bilateral radial and dorsal pedal pulses.) Neurological Exam Neurological exam: Present alert Psychiatric Psychiatric exam: Present normal affect Skin Skin exam: Present warm and dry Medical Decision Making Medical Records Screening: Per USPSTF and CDC recommendations, given the prevalence of disease in our region, it is our hospital?s policy to screen for HIV and viral Hepatitis for all patients aged 18 and over and those with ongoing risk factors. Jewel Inquiry Pt receiving controlled substance: No Vital Signs: 10/02/24 14:47 10/02/24 15:00 10/02/24 16:09 Temperature 98.4 F 98.4 F Temperature Source Oral Pulse Rate 87 71 Pulse Rate [Right] 85 Respiratory Rate 20 18 20 Blood Pressure 172/93 H 158/91 H Blood Pressure [Right Arm] 166/83 H Blood Pressure Mean 119 Blood Pressure Mean [Right Arm] 110 02 Sat by Pulse Oximetry 98 95 Oxygen Delivery Method Room Air Orders (Tests/Meds): ED MEDICATIONS Discontinued Medications Generic Name Dose Route Start Last Admin Trade Name Geovanni PRN Reason Stop Dose Admin Acetaminophen 1,000 mg 10/02/24 15:10 10/02/24 15:40 Acetaminophen 500mg Tab PO 10/02/24 15:11 1,000 mg ONCE ONE Administration Ibuprofen 600 mg 10/02/24 15:10 10/02/24 15:39 Ibuprofen 600 Mg Tablet PO 10/02/24 15:11 600 mg ONCE ONE Administration Methocarbamol 1,000 mg 10/02/24 15:11 10/02/24 15:39 Methocarbamol 500mg Tablet PO 10/02/24 15:12 1,000 mg ONCE ONE Administration Prednisone 40 mg 10/02/24 15:10 10/02/24 15:40 Prednisone 20mg Tab PO 10/02/24 15:11 40 mg ONCE ONE Administration ORDERS Category Date Time Status Elbow XR left 2 views [XR elbow LT 2V] Stat Exams 10/02/24 15:34 Completed Hip XR right minimum 2 views [XR hip RT 2-3V w/pelvis] Exams 10/02/24 15:10 Completed Stat Humerus XR left [XR humerus LT] Stat Exams 10/02/24 15:17 Completed Shoulder XR left minimum 2 views [XR shoulder LT min 2V Exams 10/02/24 15:10 Completed ] Stat Medical Decision Narrative: In summary patient is 54-year-old male past medical history described above presents emergency department for evaluation of acute on chronic left shoulder pain and right hip pain. Patient is hemodynamically stable nontoxic-appearing upon arrival, afebrile. I suspect that patient has chronic muscular tenderness injury however differential also includes avulsion fracture, among others. Have no concern for septic arthritis or gout given the history and physical exam. Initial workup will be conducted with plain film of the left shoulder left humerus and right hip. Initial inventions include Tylenol, ibuprofen, methocarbamol, steroids. Imaging informally interpreted by me there appears to be an old bilateral epicondylar fracture of the humerus at the elbow that is healed. No other acute fracture is identified on my informal interpretation. Formal read shows mild impaction of the radial head which may represent an acute or chronic radial head fracture as well as well-corticated ossific fragment along the medial condyle consistent with old fracture. There is no other evidence of acute fracture. Given this patient was placed in a sling for comfort and will follow-up with Dr. Flores on an outpatient basis. Critical Care Critical Care Time Critical Care Time: No
--- NOTE | 2024-10-02 15:17 | XR_ITS ---
PROCEDURE INFORMATION: Exam: XR Left Humerus Exam date and time: 10/02/2024 3:26 PM Age: 54 years old Clinical indication: Pain; Upper arm; Left; Additional info: Pain shoulder and distal humerus TECHNIQUE: Imaging protocol: Radiologic exam of the left humerus. Views: 2 or more views. COMPARISON: CR Shoulder L 10/02/2024 3:10 PM FINDINGS: Bones/joints: Degenerative changes in the acromioclavicular joint and glenohumeral joint. There is no evidence of acute fracture.There is no evidence of malalignment or dislocation. Please refer to the report for the elbow for findings in the elbow. Soft tissues: Normal. IMPRESSION: 1. There is no evidence of acute fracture.There is no evidence of malalignment or dislocation. 2. Please refer to the report for the elbow for findings in the elbow.
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
[2024-10-02] MEDS: IBUPROFEN 600 MG TABLET PO (15:39)
[2024-10-02] MEDS: METHOCARBAMOL 500MG TABLET 1000 MG PO (15:39)
[2024-10-02] MEDS: predniSONE 20MG TAB 40 MG PO (15:40)
[2024-10-02] MEDS: ACETAMINOPHEN 500MG TAB 1000 MG PO (15:40)
[2024-10-02 16:09] VITALS: BP 158/91; PULSE 71; RESP 20; TEMP 36.9; O2SAT 98
== END 2024-10-02 16:10 | disposition home or self-care (01) ==
PROVIDERS: Emergency Provider Student in an Organized Health Care Education/Training Program
DX: S42.402K Unspecified fracture of lower end of left humerus, subsequent encounter for fracture with nonunion (principal); M25.512 Pain in left shoulder; M25.551 Pain in right hip; M25.522 Pain in left elbow; M79.605 Pain in left leg; M79.604 Pain in right leg
CPT/HCPCS: 73030; 73060; 73070; 73502; 99283